=== PATIENT | male | born 1985 | race Caucasian/White ===

== ENCOUNTER 2021-02-18 16:03 | Emergency (ER) | payer SELFPAY ==
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
[2021-02-18] MEDS ORDERED: Zofran 4 MG/2 ML VIAL IV ONE (16:15)
[2021-02-18] MEDS ORDERED: Sodium Chloride 0.9% 1000 ML 1,000 ML IV STA (16:15)
[2021-02-18 16:46] VITALS: BP 111/62; PULSE 98; O2SAT 98
== END 2021-02-18 16:56 | disposition home or self-care (01) ==
LOC: ED 16:03
DX: Z02.89 Encounter for other administrative examinations (principal)
CPT/HCPCS: 93005; 94760; 99284

== ENCOUNTER 2021-10-16 13:12 | Emergency (ER) | payer SELFPAY ==
[2021-10-16] MEDS ORDERED: Sodium Chloride 0.9% 1000 ML 1,000 ML IV STA (13:46)
[2021-10-16] MEDS ORDERED: Sodium Chloride 0.9% 1000 ML 1,000 ML ONE (13:48)
--- NOTE | 2021-10-16 13:55 | ERPHSYRPT ---
- History of Present Illness Time Seen by Provider: 10/16/21 13:22 Source: patient Exam Limitations: no limitations Patient Subjective Stated Complaint: all covid symptoms Triage Nursing Assessment: Pt c/o of cough, vomiting, diarrhea, fever, headache, body fatigue, hypertensive, rates pain as 6/10, symptoms began on Thursday, skin n/w/d, pulses normal, doesn't appear to be in any distress Physician History: Patient is a 36-year-old male presents to our ED with a 2-day history of cough fever myalgias. One bout of emesis and diarrhea. Patient experiencing diffuse myalgias and a slight headache.. Patient rates pain 6 out of 10. Patient also has lost his taste and smell. Symptoms are consistent with Covid. Patient denies shortness of breath. Currently patient is afebrile. Symptoms are constant. Symptoms are moderate in intensity. No specific worsening or improving factors. Patient states otherwise healthy. He voices no other complaints or concerns at this time. Patient is not vaccinated against COVID- 19. Timing/Duration: day(s) (2 days ago) Severity: moderate Associated Symptoms: nausea, vomiting, cough, fever, headaches, No shortness of breath, No chest pain, No seizure, No weakness Allergies/Adverse Reactions: No Known Drug Allergies Allergy (Verified 10/16/21 14:39) Home Medications: Gabapentin 300 mg [Neurontin 300 mg] 300 mg PO TID 02/18/21 [History] No Reportable Medications [No Reported Medications] 10/16/21 [History] Travel Risk - International Travel Have you traveled outside of the country in past 3 weeks: No - Coronavirus Screening Are you exhibiting any of the following symptoms?: Yes Symptoms: Fever, Cough: New Onset, Shortness of Breath, Vomiting/Diarrhea, Loss of Taste or Smell, Headaches/Body Aches/Fatigue Close contact with a COVID-19 positive Pt in past 14-21 Days: No - Vaccine Status Have you recieved a Covid-19 vaccination: No - Review of Systems Constitutional: No Symptoms, No Fever, No Chills Eyes: No Symptoms Ears, Nose, & Throat: No Symptoms Respiratory: No Symptoms, No Cough, No Dyspnea Cardiac: No Symptoms, No Chest Pain, No Edema, No Syncope Abdominal/Gastrointestinal: No Symptoms, No Abdominal Pain, No Nausea, No Vomiting, No Diarrhea Genitourinary Symptoms: No Symptoms, No Dysuria Musculoskeletal: No Symptoms, No Back Pain, No Neck Pain Skin: No Symptoms, No Rash Neurological: No Symptoms, No Dizziness, No Focal Weakness, No Sensory Changes Psychological: No Symptoms Endocrine: No Symptoms Hematologic/Lymphatic: No Symptoms Immunological/Allergic: No Symptoms All Other Systems: Reviewed and Negative - Past Medical History Pertinent Past Medical History: Yes Cardiac History: High Cholesterol, Hypertension Musculoskeletal History: Fractures Other Medical History: neuropathy in left leg - Past Surgical History Past Surgical History: No - Social History Smoking Status: Current every day smoker Exposure to second hand smoke: Yes Drug Use: marijuana Patient Lives Alone: No - Nursing Vital Signs Nursing Vital Signs: Initial Vital Signs Temperature 98.1 F 10/16/21 13:18 Pulse Rate 85 10/16/21 13:18 Blood Pressure 144/94 10/16/21 13:18 O2 Sat by Pulse Oximetry 98 10/16/21 13:18 Pain Scale Pain Intensity 5 - Physical Exam General Appearance: no apparent distress, alert Eye Exam: PERRL/EOMI, eyes nml inspection Ears, Nose, Throat Exam: normal ENT inspection, TMs normal, pharynx normal, moist mucous membranes Neck Exam: normal inspection, non-tender, supple, full range of motion Respiratory Exam: normal breath sounds, lungs clear, airway intact, No respiratory distress Cardiovascular Exam: regular rate/rhythm, normal heart sounds, normal peripheral pulses Gastrointestinal/Abdomen Exam: soft, normal bowel sounds, No tenderness, No mass Back Exam: normal inspection, normal range of motion, No CVA tenderness, No vertebral tenderness Extremity Exam: normal inspection, normal range of motion, pelvis stable Neurologic Exam: alert, oriented x 3, cooperative, normal mood/affect, nml cerebellar function, nml station & gait, sensation nml, No motor deficits Skin Exam: normal color, warm, dry, No rash Lymphatic Exam: No adenopathy SpO2 Interpretation: normal SpO2: 98 O2 Delivery: Room Air - Course Nursing assessment & vital signs reviewed: Yes - Radiology Exams Chest X-ray Interpretation: Teleradiologist Report (Hazy right lung base interstitial alveolar opacity. Remaining heart lungs and bony thorax normal.) Ordered Tests: Active Orders 24 hr Category Date Time Status IV Insertion STAT Care 10/16/21 13:46 Active CHEST 1 VIEW (PORTABLE) Stat Exams 10/16/21 13:47 Completed CBC W DIFF Stat Lab 10/16/21 13:28 Completed CMP Stat Lab 10/16/21 13:48 Completed UA W/RFX UR CULTURE Stat Lab 10/16/21 13:48 Received Medication Summary Generic Name Dose Route Start Last Admin Trade Name Cristo PRN Reason Stop Dose Admin Sodium Chloride 1,000 mls @ 999 mls/hr 10/16/21 13:46 10/16/21 13:48 Sodium Chloride 0.9% 1000 Ml IV 10/16/21 14:46 999 mls/hr .Q1H1M STA Administration Discontinued Medications Generic Name Dose Route Start Last Admin Trade Name Freq PRN Reason Stop Dose Admin Sodium Chloride Confirm 10/16/21 13:48 Sodium Chloride 0.9% 1000 Ml Administered 10/16/21 13:49 Dose 1,000 mls @ ud .ROUTE .STK-MED ONE Lab/Rad Data: Laboratory Result Diagrams 10/16/21 13:28 10/16/21 13:48 Laboratory Results 10/16/21 10/16/21 10/16/21 Range/Units 13:50 13:48 13:28 WBC 8.3 (4.0-10.5) K/mm3 RBC 4.90 (4.1-5.6) M/mm3 Hgb 15.9 (12.5-18.0) gm/dl Hct 47.8 (42-50) % MCV 97.6 (78-100) fl MCH 32.4 H (26-32) pg MCHC 33.3 (32-36) g/dl RDW 13.1 (11.5-14.0) % Plt Count 258 (150-450) K/mm3 MPV 9.8 (7.5-11.0) fl Gran % 53.9 (36.0-66.0) % Eos # (Auto) 0.22 (0-0.5) Absolute Lymphs (auto) 2.57 (1.0-4.6) Absolute Monos (auto) 0.97 (0.0-1.3) Lymphocytes % 31.2 (24.0-44.0) % Monocytes % 11.8 (0.0-12.0) % Eosinophils % 2.7 (0.00-5.0) % Basophils % 0.4 (0.0-0.4) % Absolute Granulocytes 4.46 (1.4-6.9) Basophils # 0.03 (0-0.4) Sodium 139 (137-145) mmol/L Potassium 4.6 (3.5-5.1) mmol/L Chloride 106 (98-107) mmol/L Carbon Dioxide 24 (22-30) mmol/L Anion Gap 14.1 (5-15) MEQ/L BUN 19 (9-20) mg/dL Creatinine 0.93 (0.66-1.25) mg/dL Estimated GFR > 60.0 ML/MIN Glucose 86 (74-106) mg/dL Calcium 9.4 (8.4-10.2) mg/dL Total Bilirubin 0.40 (0.2-1.3) mg/dL AST 35 (17-59) U/L ALT 52 H (0-50) U/L Alkaline Phosphatase 74 (38-126) U/L Serum Total Protein 7.1 (6.3-8.2) g/dL Albumin 4.4 (3.5-5.0) g/dL Influenza Type A Ag NEGATIVE (NEGATIVE) Influenza Type B Ag NEGATIVE (NEGATIVE) RSV (PCR) NEGATIVE (Negative) SARS-CoV-2 (PCR) NEGATIVE (NEGATIVE) - Progress Progress: improved Progress Note: Patient reassessed. He feels well. Vital stable. Patient currently afebrile. Rapid strep RSV Covid 19 test all negative. X-ray reveals a hazy right lung base interstitial alveolar opacity. Remaining heart lungs and bony thorax normal. Prescription for a Z-Kwaku was forwarded to patient's pharmacy. Laboratory work-up essentially nonremarkable. Patient agrees to follow-up with his primary care doctor within 48 hours for evaluation. 10/16/21 14:46 Counseled pt/family regarding: lab results, diagnosis, need for follow-up, rad results - Departure Departure Disposition: Home Clinical Impression: Pneumonia Condition: Stable Critical Care Time: No Referrals: DOCTOR,NO FAMILY [Primary Care Provider] - Follow up/PCP as directed JANI FLANNERY MD [ACTIVE STAFF] - Follow up/PCP as directed Additional Instructions: Discharge/Care Plan MAX SHERWOOD was seen on 10/16/21 in the Emergency Room. The patient was counseled regarding Diagnosis,Lab results, Imaging studies, need for follow up and when to return to the Emergency Room. Prescriptions given: Discharge Note I have spoken with the patient and/or caregivers. I have explained the patient's condition, diagnosis and treatment plan based on the information available to me at this time. I have answered the patient's and/or caregiver's questions and addressed any concerns. The patient and/or caregivers have as good understanding of the patient's diagnosis, condition and treatment plan as can be expected at this point. The vital signs have been stable. The patient's condition is stable and appropriate for discharge from the emergency department. The patient will pursue further outpatient evaluation with the primary care physician or other designated or consulting physician as outlined in the discharge instructions. The patient and/or caregivers are agreeable to this plan of care and follow-up instructions have been explained in detail. The patient and/or caregivers have received these instruction. The patient/and or caregivers are aware that any significant change in condition or worsening of symptoms should prompt an immediate return to this or the closest emergency department or call 911.
[2021-10-16 13:58] LABS: Absolute Neutrophil Ct (ANC) 4.46 (1.4-6.9); BASOPHIL % 0.4 % (0.0-0.4); Basophil (Absolute #) 0.03 (0-0.4); Eosinophil % 2.7 % (0.00-5.0); Eosinophil (Absolute #) 0.22 (0-0.5); Hematocrit 47.8 % (42-50); Hemoglobin 15.9 gm/dl (12.5-18.0); Lymphocyte (Absolute #) 2.57 (1.0-4.6); Lymphocytes % 31.2 % (24.0-44.0); Mean Cell Volume 97.6 fl (78-100); Mean Corpuscular Hemoglobin 32.4 pg (26-32); Mean Corpuscular Hgb Concent. 33.3 g/dl (32-36); Mean Platelet Volume 9.8 fl (7.5-11.0); Monocyte (Absolute #) 0.97 (0.0-1.3); Monocytes % 11.8 % (0.0-12.0); Neutrophil % 53.9 % (36.0-66.0); Platelet Count 258 K/mm3 (150-450); Red Cell Distribution Width 13.1 % (11.5-14.0); White Blood Count 8.3 K/mm3 (4.0-10.5)
[2021-10-16 14:08] LABS: ALBUMIN 4.4 g/dL (3.5-5.0); ALKALINE PHOSPHATASE 74 U/L (38-126); ANION GAP 14.1 MEQ/L (5-15); BLOOD UREA NITROGEN 19 mg/dL (9-20); CHLORIDE 106 mmol/L (98-107); Calcium 9.4 mg/dL (8.4-10.2); Carbon Dioxide 24 mmol/L (22-30); Creatinine 1 0.93 mg/dL (0.66-1.25); EST GLOMERULAR FILTRATION RATE > 60.0 ML/MIN; Glucose 86 mg/dL (74-106); Potassium 4.6 mmol/L (3.5-5.1); SGOT/AST 35 U/L (17-59); SGPT/ALT 52 U/L (0-50); SODIUM 139 mmol/L (137-145); Total Protein 7.1 g/dL (6.3-8.2)
--- NOTE | 2021-10-16 14:21 | XRAY ---
Indication: Fever and cough. Pneumonia. Comparison: None Portable chest demonstrates hazy right lung base interstitial alveolar opacity that should be correlated clinically. Remaining heart, lungs, and bony thorax normal.
[2021-10-16 14:27] VITALS: BP 132/90; PULSE 72
[2021-10-16 14:36] LABS: INFLUENZA A NEGATIVE (NEGATIVE); INFLUENZA B NEGATIVE (NEGATIVE); RESPIRATORY SYNCTIAL VIRUS NEGATIVE (Negative); SARS-CoV-2 Xpert Express NEGATIVE (NEGATIVE)
[2021-10-16 14:42] LABS: Appearance CLEAR (CLEAR); Bilirubin NEGATIVE (NEGATIVE); Blood NEGATIVE Ery/ul (0-5); Glucose NEGATIVE (NEGATIVE); Ketones NEGATIVE (NEGATIVE); Leukocyte Esterase NEGATIVE (NEGATIVE); Mucus SLIGHT /HPF (NEGATIVE); Nitrite NEGATIVE (NEGATIVE); Protein,Urine Dip NEGATIVE (Negative); Specific Gravity 1.013 (1.005-1.025); Urobilinogen NEGATIVE mg/dL (0-1)
[2021-10-16 14:47] VITALS: O2SAT 98
== END 2021-10-16 15:00 | disposition home or self-care (01) ==
LOC: MERGE 13:12 → ED 13:12
DX: J18.9 Pneumonia, unspecified organism (principal); R50.9 Fever, unspecified; R05.9 Cough, unspecified; M79.18 Myalgia, other site; R11.2 Nausea with vomiting, unspecified; E78.5 Hyperlipidemia, unspecified; I10 Essential (primary) hypertension; Z72.0 Tobacco use
CPT/HCPCS: 0241U; 36000; 36415; 71045; 80053; 81001; 85025; 96360; 99284

== ENCOUNTER 2022-01-17 12:20 | Emergency (ER) | payer SELFPAY ==
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
--- NOTE | 2022-01-17 13:05 | XRAY ---
Indication: Crush injury. Comparison: None 3 view right hand obtained. No bony, articular, or soft tissue abnormalities.
[2022-01-17] MEDS ORDERED: PERCOCET TABLET 5/325MG PO STA (13:12)
[2022-01-17] MEDS ORDERED: PERCOCET TABLET 5/325MG ONE (13:15)
[2022-01-17 13:43] VITALS: BP 142/86; PULSE 76; O2SAT 98
== END 2022-01-17 13:45 | disposition home or self-care (01) ==
LOC: ED 12:20
DX: S60.221A Contusion of right hand, initial encounter (principal); S60.511A Abrasion of right hand, initial encounter; W23.0XXA Caught, crushed, jammed, or pinched between moving objects, initial encounter; G62.9 Polyneuropathy, unspecified; Z72.0 Tobacco use; Z79.891 Long term (current) use of opiate analgesic
CPT/HCPCS: 73130; 99283; A9270-GY

== ENCOUNTER 2022-06-01 16:18 | Emergency (ER) | payer OTHER ==
[2022-06-01 16:29] VITALS: O2SAT 96
[2022-06-01 17:13] LABS: INFLUENZA A NEGATIVE (NEGATIVE); INFLUENZA B NEGATIVE (NEGATIVE); RESPIRATORY SYNCTIAL VIRUS NEGATIVE (Negative); SARS-CoV-2 Xpert Express NEGATIVE (NEGATIVE)
--- NOTE | 2022-06-01 17:51 | ERPHSYRPT ---
- History of Present Illness Time Seen by Provider: 06/01/22 16:35 Source: patient Exam Limitations: no limitations Patient Subjective Stated Complaint: Needs Covid test for court and work Triage Nursing Assessment: Patient ambulated back to ED and transferred self to bed. Patient A+O X 3. Patient's skin pink, warm and dry. Patient complains of fever, cough, bodyaches, fatigue, loss of taste/smell that started last week. Patient took home test today and was Positive. Patient needs confirmation for work and court that he has covid. Physician History: 37-year-old with positive home COVID-19 test few days ago and today as well presented to the ER with flulike symptoms and wants to be tested for COVID 19 before going back to work. Patient reports having off-and-on low-grade fever chills with body aches and occasional coughing. Also had loss of taste and smell. Having mild generalized weakness but feeling better than it started. Patient does not want any thing else but COVID-19 test. Timing/Duration: week(s) (1), intermittent Cough Quality/Degree: mild, dry cough Modifying Factors: Worsens With: coughing Associated Symptoms: fever, chills, chest pain/soreness, cough, muscle aches, nasal drainage, No headache, No shortness of breath Allergies/Adverse Reactions: No Known Drug Allergies Allergy (Verified 06/01/22 16:23) Home Medications: No Reportable Medications [No Reported Medications] 06/01/22 [History] Hx Tetanus, Diphtheria Vaccination/Date Given: Yes Hx Influenza Vaccination/Date Given: No Hx Pneumococcal Vaccination/Date Given: No Immunizations Up to Date: Yes Travel Risk - International Travel Have you traveled outside of the country in past 3 weeks: No - Coronavirus Screening Are you exhibiting any of the following symptoms?: Yes Symptoms: Fever, Cough: New Onset, Shortness of Breath, Vomiting/Diarrhea, Loss of Taste or Smell, Headaches/Body Aches/Fatigue Close contact with a COVID-19 positive Pt in past 14-21 Days: No - Vaccine Status Have you recieved a Covid-19 vaccination: No - Review of Systems Constitutional: Fever, Fatigue, Weakness Eyes: No Symptoms Ears, Nose, & Throat: Nose Congestion Respiratory: Cough Cardiac: No Symptoms Abdominal/Gastrointestinal: No Symptoms Genitourinary Symptoms: No Symptoms Musculoskeletal: Myalgias Skin: No Symptoms Neurological: Sensory Changes Psychological: No Symptoms Endocrine: No Symptoms Hematologic/Lymphatic: No Symptoms - Past Medical History Pertinent Past Medical History: Yes Neurological History: Peripheral Neuropathy Cardiac History: High Cholesterol, Hypertension Musculoskeletal History: Fractures Psycho-Social History: Other Other Medical History: neuropathy in left leg - Past Surgical History Past Surgical History: No - Social History Smoking Status: Current every day smoker How long have you smoked: years Exposure to second hand smoke: Yes Drug Use: marijuana Patient Lives Alone: No - Nursing Vital Signs Nursing Vital Signs: Initial Vital Signs Temperature 98.1 F 06/01/22 16:24 Pulse Rate 80 06/01/22 16:24 Respiratory Rate 18 06/01/22 16:24 Blood Pressure 142/72 06/01/22 16:24 O2 Sat by Pulse Oximetry 96 06/01/22 16:24 Pain Scale Pain Intensity 5 - Physical Exam General Appearance: no apparent distress, alert Eye Exam: PERRL/EOMI Ears, Nose, Throat Exam: normal ENT inspection, TMs normal, pharynx normal, moist mucous membranes Neck Exam: normal inspection, non-tender, supple, full range of motion Respiratory Exam: normal breath sounds, lungs clear Cardiovascular Exam: regular rate/rhythm, normal heart sounds Gastrointestinal/Abdomen Exam: soft, No tenderness Back Exam: normal inspection, normal range of motion Extremity Exam: normal inspection, normal range of motion Neurologic Exam: alert, oriented x 3, cooperative Skin Exam: normal color SpO2 Interpretation: normal SpO2: 96 O2 Delivery: Room Air Lab/Rad Data: Laboratory Results 06/01/22 Range/Units 16:32 Influenza Type A Ag NEGATIVE (NEGATIVE) Influenza Type B Ag NEGATIVE (NEGATIVE) RSV (PCR) NEGATIVE (Negative) SARS-CoV-2 (PCR) NEGATIVE (NEGATIVE) - Progress Progress: unchanged Air Movement: good Progress Note: 06/01/22 17:49 37-year-old is evaluated for for confirmation of COVID-19 testing. COVID-19 test is obtained and is negative. Patient is not in any distress and does not want any further work-up. Discussed signs symptoms of worsening needing return to ER which he seems understanding. Blood Culture(s) Obtained: No Antibiotics given: No Counseled pt/family regarding: lab results, diagnosis, need for follow-up - Departure Departure Disposition: Home Clinical Impression: Viral syndrome, Encounter for laboratory testing for COVID-19 virus Condition: Stable Critical Care Time: No Referrals: GIANCARLO ANDREWS NP [Primary Care Provider] - Follow Up with PCP/3 days Instructions: Viral Syndrome (DC) Additional Instructions: Take Tylenol/ibuprofen as needed for aches and pains. Drink plenty of fluids. Follow-up with primary care for reevaluation. Return to ER for any worsening.
[2022-06-01 17:58] VITALS: BP 135/69; PULSE 65
== END 2022-06-01 17:59 | disposition home or self-care (01) ==
LOC: ED 16:18
DX: B34.9 Viral infection, unspecified (principal); Z20.822 Contact with and (suspected) exposure to COVID-19; R50.9 Fever, unspecified; M79.10 Myalgia, unspecified site; R05.9 Cough, unspecified; R43.8 Other disturbances of smell and taste; R53.1 Weakness; E78.5 Hyperlipidemia, unspecified; I10 Essential (primary) hypertension; Z72.0 Tobacco use; Z28.310 Unvaccinated for COVID-19
CPT/HCPCS: 0241U; 99282

== ENCOUNTER 2022-12-06 16:07 | Emergency (ER) | payer OTHER ==
[2022-12-06 17:26] VITALS: BP 127/81; PULSE 82; O2SAT 94
[2022-12-06] MEDS ORDERED: TORAdol 30 mg Injection ONE (17:36)
--- NOTE | 2022-12-06 17:40 | ERPHSYRPT ---
- History of Present Illness Time Seen by Provider: 12/06/22 16:30 Source: patient Exam Limitations: no limitations Patient Subjective Stated Complaint: PT states "I fell day before yesterday and my leg twisted up under me. My right knee hurts but my right foot is what is really bad." Triage Nursing Assessment: PT presented alert and oriented X 3, skin pwd. pt ambulates with an upright steady gait, able to speak in clear full sentences pt in no apparent respiratory distress. Pt right foot bruised and swollen Physician History: Patient is a 37-year-old white male who yesterday fell twisting his right leg under his body he does had a little bit of discomfort in the knee but the right foot is the primary place of injury it is markedly swollen it is ecchymotic he has decreased range of motion he is able to bear weight. He denies any other injury. He does have arthritic changes in multiple joints from his experience riding motor bikes Method of Injury: fell Occurred: yesterday Quality: throbbing Severity of Pain-Max: moderate Severity of Pain-Current: mild Lower Extremities Pain: foot: right (Entire foot is swollen ecchymotic especially around the toes.) Modifying Factors: Improves With: immobilization, movement Allergies/Adverse Reactions: No Known Drug Allergies Allergy (Verified 06/01/22 16:23) Home Medications: No Reportable Medications [No Reported Medications] 06/01/22 [History] Hx Tetanus, Diphtheria Vaccination/Date Given: Yes Hx Influenza Vaccination/Date Given: No Hx Pneumococcal Vaccination/Date Given: No Immunizations Up to Date: Yes Travel Risk - International Travel Have you traveled outside of the country in past 3 weeks: No - Coronavirus Screening Are you exhibiting any of the following symptoms?: No Close contact with a COVID-19 positive Pt in past 14-21 Days: No - Vaccine Status Have you recieved a Covid-19 vaccination: No - Review of Systems Constitutional: No Fever, No Chills Eyes: No Symptoms Ears, Nose, & Throat: No Symptoms Respiratory: No Cough, No Dyspnea Cardiac: No Chest Pain, No Edema, No Syncope Abdominal/Gastrointestinal: No Abdominal Pain, No Nausea, No Vomiting, No Diarrhea Genitourinary Symptoms: No Dysuria Musculoskeletal: Joint Pain, Joint Swelling, No Back Pain, No Neck Pain Skin: No Rash Neurological: No Dizziness, No Focal Weakness, No Sensory Changes Psychological: No Symptoms Endocrine: No Symptoms All Other Systems: Reviewed and Negative - Past Medical History Pertinent Past Medical History: Yes Neurological History: Peripheral Neuropathy Cardiac History: High Cholesterol, Hypertension Musculoskeletal History: Fractures Psycho-Social History: Other Other Medical History: neuropathy in left leg - Past Surgical History Past Surgical History: No - Social History Smoking Status: Current every day smoker How long have you smoked: years Exposure to second hand smoke: Yes Drug Use: marijuana Patient Lives Alone: No - Nursing Vital Signs Nursing Vital Signs: Initial Vital Signs Temperature 97.3 F 12/06/22 16:19 Pulse Rate 87 12/06/22 16:19 Respiratory Rate 20 12/06/22 16:19 Blood Pressure 121/88 12/06/22 16:19 O2 Sat by Pulse Oximetry 96 12/06/22 16:19 Pain Scale Pain Intensity 6 - Physical Exam General Appearance: mild distress, alert Eyes, Ears, Nose, Throat Exam: moist mucous membranes Neck Exam: non-tender, supple Cardiovascular/Respiratory Exam: chest non-tender, normal breath sounds, regular rate/rhythm, no respiratory distress Gastrointestinal/Abdominal Exam: non-tender, guarding Back Exam: normal inspection, No vertebral tenderness Hips Exam: bilateral: non-tender, normal inspection, normal range of motion Legs Exam: bilateral leg: non-tender, normal inspection, normal range of motion Knees Exam: bilateral knee: non-tender, normal inspection, normal range of motion Ankle Exam: bilateral ankle: non-tender, normal inspection, normal range of motion Foot Exam: right foot: bone tenderness, ecchymosis, limited range of motion, nodule, pain, soft tissue tenderness, swelling Neuro/Tendon Exam: normal sensation, normal motor functions Mental Status Exam: alert, oriented x 3, cooperative Skin Exam: normal color, warm, dry SpO2 Interpretation: normal SpO2: 94 O2 Delivery: Room Air - Course Nursing assessment & vital signs reviewed: Yes - Radiology Exams Right Foot X-ray Interpretation: Interpreted by me, Negative (Negative except for soft tissue swelling) Ordered Tests: Active Orders 24 hr Category Date Time Status FOOT (MINIMUM 3 VIEWS) Stat Exams 12/06/22 16:33 Taken - Progress Progress: unchanged - Departure Departure Disposition: Home Clinical Impression: Right foot sprain Condition: Stable Critical Care Time: No Referrals: GIANCARLO ANDREWS NP [Primary Care Provider] - Follow up/PCP as directed Instructions: Foot Sprain (DC)
[2022-12-06] MEDS ORDERED: TORAdol 30 mg Injection IM ONE (17:41)
--- NOTE | 2022-12-06 20:21 | XRAY ---
Indication: Swelling following injury. Comparison: None 3 nonweightbearing views right foot demonstrates tiny spurring anterosuperior talus and tiny navicular accessory ossicle. No other bony, articular, or soft tissue abnormalities.
== END 2022-12-06 18:06 | disposition home or self-care (01) ==
LOC: ED 16:07
DX: S93.601A Unspecified sprain of right foot, initial encounter (principal); W19.XXXA Unspecified fall, initial encounter; M25.561 Pain in right knee; E78.5 Hyperlipidemia, unspecified; I10 Essential (primary) hypertension; Z72.0 Tobacco use; Z28.310 Unvaccinated for COVID-19
CPT/HCPCS: 73630; 96372; 99283; J1885; L4386